=== PATIENT | female | born 1955 | race Caucasian/White ===

== ENCOUNTER 2017-08-20 15:16 | Outpatient (CLI) | payer BC | END 2017-08-20 15:17 | disposition home or self-care (01) | LOC: BICMAMMO 15:16 | PROVIDERS: ATTEND Family Medicine | DX: Z12.31 Encounter for screening mammogram for malignant neoplasm of breast (principal); R92.1 Mammographic calcification found on diagnostic imaging of breast | CPT/HCPCS: 77063; 77067 ==

== ENCOUNTER 2017-09-27 12:46 | Outpatient (CLI) | payer BC | END 2017-09-27 12:47 | disposition home or self-care (01) | LOC: BICULT 12:46 | PROVIDERS: ATTEND Family Medicine | DX: R10.84 Generalized abdominal pain (principal) | CPT/HCPCS: 76700 ==

== ENCOUNTER 2018-09-12 14:39 | Outpatient (CLI) | payer BC ==
--- NOTE | 2018-09-12 16:07 | MMO ---
Bilateral MAMMO Bilat Screen [facility]. CLINICAL HISTORY: Patient is 63 years old and is seen for screening. The patient has no family history of breast cancer. The patient has no personal history of cancer. The patient has a history of left Excisional Biopsy in 1999 - benign. VIEWS: The views performed were: bilateral craniocaudal with tomosynthesis and bilateral mediolateral oblique with tomosynthesis. FILMS COMPARED: The present examination has been compared to prior imaging studies performed at [facility] on 04/30/2014, 06/18/2015, 07/26/2016 and 08/20/2017. MAMMOGRAM FINDINGS: There are scattered fibroglandular densities. There are no suspicious masses, calcifications or areas of architectural distortion. There are benign appearing calcifications in both breasts. There are no suspicious masses, suspicious calcifications, or new areas of architectural distortion. IMPRESSION: THERE IS NO MAMMOGRAPHIC EVIDENCE OF MALIGNANCY. A ROUTINE FOLLOW-UP MAMMOGRAM IN 1 YEAR IS RECOMMENDED. THE RESULTS OF THIS EXAM WERE SENT TO THE PATIENT. ACR BI-RADS Category 2 - Benign finding MAMMOGRAPHY NOTE: 1. A negative mammogram report should not delay a biopsy if a dominant of clinically suspicious mass is present. 2. Approximately 10% to 15% of breast cancers are not detected by mammography. 3. Adenosis and dense breasts may obscure an underlying neoplasm. Reported by: SHANNON CONCEPCION MD Electonically Signed: [id number]
--- NOTE | 2018-09-12 17:16 | ULT ---
THYROID ULTRASOUND: INDICATIONS: Thyroid nodule. COMPARISON: None. FINDINGS: Both lobes of the thyroid are homogeneous. The right lobe measures 1.4 x 4.2 x 1.7 cm. The left lob e measures 1.2 x 3.7 x 1.6 cm. Hypoechoic nodule in the superior right lobe, measuring 3 to 6 mm. Complex, hypoechoic nodule, inferior right lobe, measuring 1 to 1.5 cm. Solid isoechoic nodule, upper pole, left lobe, measuring 1.0 cm. Solid isoechoic nodule, inferior left lobe, measuring 4 to 8 mm. IMPRESSION: There are bilateral thyroid nodules. Recommend follow-up thyroid ultrasound exam in six months to assess stability. POS: LINDA
== END 2018-09-12 14:40 | disposition home or self-care (01) ==
LOC: BICMAMMO 14:39
PROVIDERS: ATTEND Family Medicine
DX: Z12.31 Encounter for screening mammogram for malignant neoplasm of breast (principal); E04.2 Nontoxic multinodular goiter
CPT/HCPCS: 76536; 77063; 77067

== ENCOUNTER 2019-10-24 12:30 | Outpatient (CLI) | payer MEDICARE ==
--- NOTE | 2019-10-24 13:35 | ULT ---
EXAM: US Thyroid STANDARD PROVIDED CLINICAL HISTORY: Thyroid goiter. Follow-up evaluation. COMPARISON: 09/12/2018 FINDINGS: Right lobe of thyroid gland measures 3.9 cm x 1.4 cm x 1.6 cm at the left lobe measuring 4.7 cm x 2.3 cm x 1.6 cm. Thyroid isthmus measures 0.5 cm in AP dimensions. There are 4 separate discernible nodules seen in the right lobe of the thyroid gland with 3 nodules i n the left lobe of the thyroid gland. Largest nodule seen in the midportion right lobe of the thyroid gland demonstrates a cystic and solid appearance and measures 1.3 cm in maximal dimensions. This is stable in size compared to the prior exam. A 0.7 cm hypoechoic nodule is seen in the medial aspect inferior pole right lobe of the thyroid gland which was not seen on prior exam. A smaller hypoechoic nodule measuring 0.5 cm is seen in the midportion medial aspect right lobe of thyroid gland. A 0.6 cm anechoic lesion with small linear echogenic focus is again seen in the superior pole right lobe of thyroid gland which is stable in appearance. Left lobe of thyroid gland is heterogeneous in appearance. An isoechoic solid nodule is seen in the s uperior pole left lobe of thyroid gland measuring 1.2 cm in maximal dimensions and overall similar in size and appearance compared to prior study. A small isoechoic nodule is seen in the junction of t he midportion and inferior pole left lobe of thyroid gland which measures 0.9 cm and is stable compared to prior study. A smaller 0.7 cm hypoechoic nodules seen in the inferior pole left lobe of t hyroid gland which is not definitely seen on prior exam. IMPRESSION: TI RADS level 4 nodules each lobe of the thyroid gland. Based on ACR guidelines and size of these nod ules, fine-needle aspiration or additional follow-up is not warranted. Stable nodules are seen in each lobe of the thyroid gland with 2 additional nodules now seen in the right lobe of the thyroid gl and and a single additional nodule in the inferior pole left lobe of thyroid gland and largest measurement of these new nodules bilaterally is 0.7 cm.
--- NOTE | 2019-10-24 13:45 | MMO ---
Bilateral MAMMO Bilat Screen [facility]. CLINICAL HISTORY: Patient is 64 years old and is seen for screening. The patient has no family history of breast cancer. The patient has no personal history of cancer. The patient has a history of left Excisional Biopsy in 1999 - benign. VIEWS: The views performed were: bilateral craniocaudal with tomosynthesis and bilateral mediolateral oblique with tomosynthesis. FILMS COMPARED: The present examination has been compared to prior imaging studies performed at [facility] on 06/18/2015, 07/26/2016, 08/20/2017 and 09/12/2018. This study has been interpreted with the assistance of computer-aided detection. MAMMOGRAM FINDINGS: There are scattered fibroglandular densities. Finding 1: There are stable benign appearing calcifications seen in both breasts. Finding 2: There are stable benign appearing densities seen in both breasts. There are no suspicious masses, suspicious calcifications, or new areas of architectural distortion. IMPRESSION: THERE IS NO MAMMOGRAPHIC EVIDENCE OF MALIGNANCY. A ROUTINE FOLLOW-UP MAMMOGRAM IN 1 YEAR IS RECOMMENDED. THE RESULTS OF THIS EXAM WERE SENT TO THE PATIENT. ACR BI-RADS Category 2 - Benign finding MAMMOGRAPHY NOTE: 1. A negative mammogram report should not delay a biopsy if a dominant of clinically suspicious mass is present. 2. Approximately 10% to 15% of breast cancers are not detected by mammography. 3. Adenosis and dense breasts may obscure an underlying neoplasm. Reported by: DAVID MEDELLIN MD Electonically Signed: [id number]
== END 2019-10-24 12:31 | disposition home or self-care (01) ==
LOC: BICULT 12:30
PROVIDERS: ATTEND Family Medicine
DX: Z12.31 Encounter for screening mammogram for malignant neoplasm of breast (principal); E04.2 Nontoxic multinodular goiter; Z91.89 Other specified personal risk factors, not elsewhere classified
CPT/HCPCS: 76536; 77063; 77067

== ENCOUNTER 2020-12-29 13:09 | Outpatient (CLI) | payer MEDICARE | END 2020-12-29 13:10 | disposition home or self-care (01) | LOC: BICULT 13:09 | PROVIDERS: ATTEND Family Medicine | DX: E04.2 Nontoxic multinodular goiter (principal) | CPT/HCPCS: 76536 ==

== ENCOUNTER 2022-02-02 11:43 | Outpatient (CLI) | payer MEDICARE | END 2022-02-02 11:44 | disposition home or self-care (01) | LOC: BICMAMMO 11:43 | PROVIDERS: ATTEND Family Medicine | DX: Z12.31 Encounter for screening mammogram for malignant neoplasm of breast (principal); E04.2 Nontoxic multinodular goiter; Z91.89 Other specified personal risk factors, not elsewhere classified | CPT/HCPCS: 76536; 77063; 77067 ==

== ENCOUNTER 2023-04-30 13:05 | Outpatient (CLI) | payer MEDICARE | END 2023-04-30 13:06 | disposition home or self-care (01) | LOC: BICMAMMO 13:05 | PROVIDERS: ATTEND Family Medicine | DX: Z12.31 Encounter for screening mammogram for malignant neoplasm of breast (principal); E04.2 Nontoxic multinodular goiter; Z91.89 Other specified personal risk factors, not elsewhere classified | CPT/HCPCS: 76536; 77063; 77067 ==

== ENCOUNTER 2024-12-02 12:49 | Outpatient (CLI) | payer MEDICARE | END 2024-12-02 12:50 | disposition home or self-care (01) | LOC: ULT 12:49 | PROVIDERS: ATTEND Family Medicine | DX: E04.2 Nontoxic multinodular goiter (principal) | CPT/HCPCS: 76536 ==